=== PATIENT | female | born 1965 | race Caucasian/White ===

== ENCOUNTER 2018-01-30 19:41 | Emergency (ER) | payer OTHER, SELFPAY ==
[2018-01-30 19:43] VITALS: BP 115/71; PULSE 90; RESP 16; TEMP 36.7; O2SAT 98; BMI 32.9
--- NOTE | 2018-01-30 21:04 | ED.VISSUMM ---
- ER Visit Summary Date of Service: 01/30/18 Chief Complaint: [Laceration left ring finger] History of Present Illness: The patient is a 52 F [presents the emergency department complaint of laceration to her left ring finger that occurred prior to arrival in the emergency department. Patient was using clippers to cut colby and accidentally clipped her left ring finger. Patient is right-hand dominant. Patient unsure of her last tetanus.] Physical Examination: [Left hand-patient has a 2 cm flap-like laceration to the distal pulp of the ring finger. Patient has normal range of motion at the DIP and PIP joint. Patient has normal sensation.] Test Results: [None indicated] Emergency Department Course and Treatment: [Laceration repair-wound sterilely draped and prepped. Using 2% lidocaine total 6 cc used to perform a digital block. Wound cleansed with Shur-Clens and irrigated with copious saline. Using 5-0 nylon a total of 4 single interrupted sutures placed with good wound edge approximation. Patient tolerated procedure well.] Treatment Plan: [Patient to have sutures removed in 10 days.] Disposition: [Discharged home in stable condition. Patient advised to return if increasing pain, redness, swelling, or condition should worsen in any way.] Impression: [Left ring finger laceration 2 cm-simple repair] This note was generated with [employer] dictation software. It may contain incorrect words, spelling, and punctuation that were not noted in review of the chart prior to signing ED Disposition - Plan for ED Patient: Chief Complaint: Laceration Referrals: Blayne Gerard MD [Primary Care Provider] -
--- NOTE | 2018-01-30 21:06 | ED.DEP ---
ED Disposition - Plan for ED Patient: Chief Complaint: Laceration Instructions: ED Laceration Hand Referrals: Blayne Gerard MD [Primary Care Provider] - 10 Day for suture removal
[2018-01-30] MEDS: Diphth,Pertuss(Acell),Tet Vac 0.5 ML Vial IM (21:13)
[2018-01-30 21:31] VITALS: PULSE 67; RESP 18
== END 2018-01-30 21:32 | disposition home or self-care (01) ==
PROVIDERS: Emergency Provider Emergency Medicine; Family Provider Family Medicine; PCP Family Medicine
DX: S61.215A Laceration without foreign body of left ring finger without damage to nail, initial encounter (principal); Z79.899 Other long term (current) drug therapy; W26.8XXA Contact with other sharp object(s), not elsewhere classified, initial encounter; Y93.H2 Activity, gardening and landscaping; Y92.007 Garden or yard of unspecified non-institutional (private) residence as the place of occurrence of the external cause; Y99.8 Other external cause status
CPT/HCPCS: 12001; 90471; 90715; 99283

== ENCOUNTER → 2020-01-13 18:07 | Outpatient (CLI) | payer OTHER, SELFPAY | PROVIDERS: PCP Family Medicine; Visit Provider Family Medicine | DX: Z11.59 Encounter for screening for other viral diseases (principal) | CPT/HCPCS: 87635; G2023; U0003 ==